=== PATIENT | female | born 1995 | race Caucasian/White ===

== ENCOUNTER 2021-08-04 01:29 | Emergency (ER) | payer OTHER ==
[~2021-08-04] VITALS: Ht 160 cm; Wt 77.1 kg
--- NOTE | 2021-08-04 01:29 | NUR ---
PT BIB [facility], PREBOOK. TAKEN TO CHAIR C
[2021-08-04 01:30] VITALS: BP 129/78
--- NOTE | 2021-08-04 01:30 | NUR ---
Dr. Gonzalez examining patient.
[2021-08-04 01:55] VITALS: BP 129/78
--- NOTE | 2021-08-04 01:55 | NUR ---
PATIENT BIB [facility] POLICE DEPT. PATIENT EXAMINED BY DR. BELL. PATIENT MEDICALLY CLEARED AND RELEASED IN CUSTODY IN STABLE CONDITION. ORIGINAL PRE-BOOK FORM GIVEN TO OFFICER ENMANUEL [id number].
== END 2021-08-04 01:55 ==
LOC: MED 01:29
DX: F10.129 Alcohol abuse with intoxication, unspecified (principal); V89.2XXA Person injured in unspecified motor-vehicle accident, traffic, initial encounter; Y93.89 Activity, other specified; Y92.410 Unspecified street and highway as the place of occurrence of the external cause; Y99.8 Other external cause status
CPT/HCPCS: 99283